=== PATIENT | male | born 1970 | race Caucasian/White ===

== ENCOUNTER 2017-09-16 19:47 | Emergency (ER) | payer OTHER ==
[~2017-09-16] VITALS: Ht 188 cm; Wt 152.3 kg
[~2017-09-16 19:47] MED LIST: CLON0.5T3 PO; LORA10TA6 PO; LURA40TA PO; METF1000 PO; NXM/40 PO; RANI300T2 PO; SITA1TAB27 PO
[2017-09-16 20:13] VITALS: TEMP 36.5; Ht 188 cm; Wt 152.3 kg
[2017-09-16] MEDS ORDERED: GLIM4TAB2 PO (20:53)
[2017-09-16] MEDS ORDERED: ATOR-26 PO (20:53)
--- NOTE | 2017-09-16 21:32 | DIAGNOSTIC IMAGING REPORT ---
LUMBAR SPINE 5 VIEWS CLINICAL HISTORY: Low back pain. FINDINGS: 5 views of the lumbar spine are obtained. No prior studies are available for comparison at the time of dictation. The skeletal structures are well mineralized. There is no radiographic evidence of fracture or malalignment. Vertebral body height and alignment are maintained. The transverse and spinous processes are intact. Mild facet arthropathy is seen in the lower lumbar spine. Lateral marginal osteophytes are seen in the right at L2-L3. Osteophytes are also present in the lower thoracic spine. There is no evidence of spondylolysis. The intervertebral disc spaces are well-maintained. The visualized bony pelvis appears intact. There is a nonobstructed abdominal bowel gas pattern. IMPRESSION: No acute bony abnormality is seen involving the lumbosacral spine. Electronically signed by: Antonio Zavala M.D. 09/16/2017 9:30 PM Dictated Date/Time: 09/16/2017 9:29 PM
--- NOTE | 2017-09-16 22:20 | EMERGENCY ROOM VISIT NOTE ---
ED Visit Note First contact with patient: 20:20 CHIEF COMPLAINT: Low back pain 4 weeks HISTORY OF PRESENT ILLNESS: Patient is a 46-year-old white male who presents the emergency department a complete by his mother for evaluation of low back he reports that he has had low back pain for about a year, but his pain has been worse over the last 3-4 weeks. He was seen at his PCPs office and was prescribed physical therapy, this is his third week of physical therapy. He states that the pain was "annoying" but manageable until yesterday, when it became worse. He describes a constant aching sensation in the right low back that is worse with getting up from laying down or when he rolls over. He also has pain when he tries to lay flat. At rest he has no pain, when he moves, he reports the pain is a 10/10. The pain does not radiate into his buttocks or his legs. He denies any numbness, tingling or weakness into the lower extremities. No urinary symptoms or bowel or bladder incontinence. He denies any anterior abdominal pain, nausea, vomiting, fever or chills. He has tried taking Tylenol, taking hot showers and applying heat to the area without relief. He reports that he had x-rays of his back a couple of years ago which showed degenerative disc disease in his low back. At physical therapy he did tell them that he was in increased pain, and he reports that they did the same exercises, with no new interventions or modalities. REVIEW OF SYSTEMS: Review of systems as per HPI. All other systems reviewed were negative. 10 systems reviewed. PMH: Electronic medical records are reviewed and summarized as above/below. See Problem List. SOCIAL HISTORY: Patient lives at home. Nonsmoker. PHYSICAL EXAM: Vital Signs: Reviewed Nurse's notes. CONSTITUTIONAL: Patient is a well-appearing 46-year-old white male who is awake and alert and laying supine on the gurney in no acute distress. He reports discomfort with position changes, however is observed changing position on the gurney and standing up to change into the gown and is in no apparent distress. CARDIOVASCULAR: Regular rate and rhythm. Peripheral pulses easily palpable. RESPIRATORY: Breath sounds equal and clear to auscultation without wheezes, rales, or rhonchi heard. Full and equal chest expansion without accessory muscle use or retractions. ABDOMEN: Bowel sounds are present. Abdomen is soft, nontender and nondistended. INTEGUMENTARY: No lesions or rash, normal skin turgor. LYMPH: No lymphadenopathy. SPINE: Examination of the patient's back does not demonstrate any ecchymosis, abrasions or outward signs of trauma. No erythema, increased warmth or induration. Patient has no midline discomfort to palpation over the low lumbar spine, slight right sided paraspinous muscle tenderness without spasm. There is no pain over the SI joint or the sciatic notch. Range of motion is full but he does have some discomfort. EXTREMITIES: Leg lengths are symmetrical. Negative logroll bilaterally. Normal strength including dorsi-flexion and plantar flexion of the great toes and ankles and flexion and extension of the knees and flexion of the hips. Negative bilateral straight leg raise testing. Lower extremity DTRs are equal and symmetrical bilaterally. Distal pulses are easily palpable. Sensation light touch is intact over the lower extremities bilaterally. EMERGENCY DEPARTMENT COURSE: The patient was seen and evaluated as above. He presents the emergency department with a several week history of right-sided low back pain. He has tried Tylenol, heat and has been in physical therapy. He reports that he cannot take NSAIDs, after further discussion this is not related to an allergy, but because of "fatty liver disease." X-rays of the lumbar spine were obtained and were fairly unremarkable. He does not have any findings consistent with cauda equina syndrome. He does not have any radicular symptoms. His pain may be muscular or ligamentous injury to her. I agree that physical therapy is reasonable. Patient was reviewed in the [facility] Prescription Drug Monitoring Program, and there were no red flags noted. He receives regular benzodiazepine prescriptions from his psychiatrist, but no narcotics. As he reportedly cannot take NSAIDs, he was given a small prescription for oxycodone. He was encouraged to confirm with his PCP that they do not want him taking NSAIDs. He should recheck with his PCP particularly as his symptoms are worsening, as he may need further workup, including a possible MRI. MEDICAL DECISION MAKING: I do not suspect acute compression syndrome, cauda equina, diskitis, epidural abscess, hematoma or neurovascular compromise. Medication reconciliation: I attest that I have personally reviewed the patient' s current medication list. Blood pressure screening: Patient was found to have a slightly elevated blood pressure due to circumstances. I do not believe that the patient requires hypertension monitoring. LUMBAR SPINE 5 VIEWS CLINICAL HISTORY: Low back pain. FINDINGS: 5 views of the lumbar spine are obtained. No prior studies are available for comparison at the time of dictation. The skeletal structures are well mineralized. There is no radiographic evidence of fracture or malalignment. Vertebral body height and alignment are maintained. The transverse and spinous processes are intact. Mild facet arthropathy is seen in the lower lumbar spine. Lateral marginal osteophytes are seen in the right at L2-L3. Osteophytes are also present in the lower thoracic spine. There is no evidence of spondylolysis. The intervertebral disc spaces are well-maintained. The visualized bony pelvis appears intact. There is a nonobstructed abdominal bowel gas pattern. IMPRESSION: No acute bony abnormality is seen involving the lumbosacral spine. Problem List Medical Problems: (1) Foot pain Status: Resolved Current/Historical Medications Scheduled Atorvastatin (Lipitor), 80 MG PO DAILY Esomeprazole Magnesium (Nexium), 40 MG PO QPM Glimepiride (Glimepiride), 4 MG PO DAILY Loratadine (Claritin), 10 MG PO DAILY PRN Lurasidone Hcl (Latuda), 40 MG PO QPM Metformin Hcl (Glucophage), 1,000 MG PO QPM Ranitidine Hcl (Zantac), 300 MG PO HS Sitagliptin (Januvia), 100 MG PO QPM Scheduled PRN Clonazepam (Klonopin), 0.5 MG PO BID PRN Oxycodone Immediate Rel Tab (Roxicodone Ir), 1-2 TAB PO Q4H PRN for Severe Pain Allergies Coded Allergies: NSAIDs (Verified Allergy, Unknown, because of liver, 09/16/17) Vital Signs Date Time Temp Pulse Resp B/P (MAP) Pulse Ox O2 Delivery O2 Flow Rate FiO2 09/16/17 23:02 89 22 155/101 99 09/16/17 22:53 84 18 155/101 94 Room Air 09/16/17 20:13 36.5 93 20 160/100 94 Room Air Medications Administered Medications (Trade) Dose Ordered Sig/Nikhil Route Start Time Stop Time Status Last Admin Dose Admin Oxycodone HCl (Roxicodone Immediate Rel 5MG Home Pack) 1 homepack UD ONCE PO 09/16/17 23:00 09/16/17 23:01 DC 09/16/17 23:00 1 HOMEPACK Departure Information Impression Primary Impression: Low back pain Prescriptions Oxycodone Immediate Rel Tab (ROXICODONE IR) 5 Mg Tab 1-2 TAB PO Q4H Y for Severe Pain, #20 TAB For Initial Treatment Prov: Liliam Soliz PA 09/16/17 Referrals Juan Jacobo D.O. (PCP) Patient Instructions [facility] Additional Instructions Oxycodone (OxyIR) 5mg: Take 1-2 pills every four hours for breakthrough pain. Avoid alcohol, operating machinery or dangerous equipment, working on ladders or roofs, DRIVING, or situations where being under the influence may be dangerous. It is recommended to use an [id number] stool softener such as Colace, 100mg twice daily while taking this medication to avoid constipation. Acetaminophen(Tylenol) may be used for fever or pain. Use 1000mg every six hours as needed. Avoid using more than 3000mg in a 24 hour period. This medication can be taken if you need to drive, work, or perform activities which may be dangerous when taking narcotic pain medication. Rest and avoid heavy lifting until your symptoms resolve and then gradually return to full activity. A good rule of thumb is if it hurts your back to perform a certain activity, then it should be avoided until you are healthy again. A heating pad, warm compresses, or a hot shower may help with tight muscles and can be done several times a day as needed. Continue current medications. Return to the ER immediately for any numbness, tingling, severe pain, loss of control of your bowels or bladder, inability to walk, or as needed. Follow up with your primary care physician within 3-5 days for a recheck of your current condition.
[2017-09-16] MEDS ORDERED: OXYC1TAB3 PO (22:52)
[2017-09-16] MEDS ORDERED: OXYCODONE IR HOME PACK PO ONE (23:00)
[2017-09-16 23:02] VITALS: BP 155/101; PULSE 89; O2SAT 99
== END 2017-09-16 23:00 | disposition home or self-care (01) ==
LOC: C.EDB 19:48 → C.EDD 23:00
DX: M54.5 Low back pain (principal); M51.36 Other intervertebral disc degeneration, lumbar region; Z79.84 Long term (current) use of oral hypoglycemic drugs